=== PATIENT | male | born 1980 | race Caucasian/White ===

== ENCOUNTER 2018-10-22 11:33 | Day surgery (SDC) | payer BC ==
[~2018-10-22 11:33] MED LIST: Buffered Lidocaine 1% SYRIN* 1 ML/SYRINGE INTRADERM ONE; Famotidine IV* 10 MG/ML 2 ML (20 mg) IV ONE; Lactated Ringers 1000 ML Bag* 1,000 ML IV SCH
[2018-10-22] MEDS ORDERED: Famotidine IV* 10 MG/ML 2 ML (20 mg) ONE (11:53)
[2018-10-22] MEDS ORDERED: Clindamycin 900 MG/D5W BAG(*) 900 MG/50 ML BAG IVPB ONE (12:00)
[2018-10-22] MEDS ORDERED: Bupivacaine 0.25% SDV PF* 10 ML VIAL INJ ONE ×2 (13:21→13:37)
[2018-10-22] MEDS ORDERED: Midazolam* 1 MG/ML 5 ML VIAL (5 MG) ONE (13:52)
[2018-10-22] MEDS ORDERED: fentaNYL* 50 MCG/ML 2 ML VIAL (100 MCG VIAL) ONE ×2 (14:00→15:47)
[2018-10-22] MEDS ORDERED: Ondansetron INJ* 2 MG/ML VIAL ONE (14:15)
[2018-10-22] MEDS ORDERED: Lidocaine 2% PF * 5 ML VIAL ONE (14:15)
[2018-10-22] MEDS ORDERED: DiMENhydriNATE IV* 50 MG/ML VIAL ONE (14:15)
[2018-10-22] MEDS ORDERED: Propofol* 10 MG/ML 20 ML BTL ONE (14:15)
[2018-10-22] MEDS ORDERED: Ketorolac INJ* 30 MG/ML 1 ML VIAL ONE (14:15)
[2018-10-22] MEDS ORDERED: Dexamethasone IV* 4 MG/ML 1 ML (4 MG) ONE (14:15)
[2018-10-22] MEDS ORDERED: DiMENhydriNATE IV* 50 MG/ML VIAL IV PUSH PRN (14:21)
[2018-10-22] MEDS ORDERED: Naloxone* 0.4 MG/ML 1 ML VIAL IV PRN (14:21)
[2018-10-22] MEDS ORDERED: oxyCODONE TAB* 5 MG TAB PO PRN (14:21)
[2018-10-22] MEDS ORDERED: Acetaminophen TAB* 325 MG PO PRN (14:21)
[2018-10-22] MEDS ORDERED: oxyCODONE TAB* 5 MG TAB ONE (16:35)
[2018-10-22 17:40] VITALS: BP 140/80
--- NOTE | 2018-10-22 22:57 | OP ---
DATE OF OPERATION: 10/22/18 - [facility] DATE OF : 80 SURGEON: Chance Vogt MD ENVIRONMENTAL REMEDIATION ENGINEER: NORAH Chavez. An assignment desk assistant was needed for the procedure to aid in positioning of the arm and retraction. ANESTHESIOLOGIST: Dr. Osborne followed by Dr. Lux. ANESTHESIA: General. PRE-OP DIAGNOSIS: Left scaphoid waist nonunion. POST-OP DIAGNOSIS: Left scaphoid waist nonunion. OPERATIVE PROCEDURE: Repair of left scaphoid nonunion with distal radius bone graft and Acutrak screw fixation. INDICATIONS: Mohamud had the fracture about a while ago. The x-rays showed lucencies and cystic formation at the fracture site, was initially not visible on the injury films taken in the ER. I got a CT scan, maybe showed a little bit of bridging on the anterior cortex, but a lot of cystic fibrous tissue formation across the fracture site and rarely only saw cortical bridging in one cortex. I told him it looked like it was going on to nonunion and I would prefer to intervene before he developed a hump-back deformity. He agreed and wanted to proceed. He acknowledges that there is risk associated with the procedure. ESTIMATED BLOOD LOSS: 2 mL. COMPLICATIONS: None. FINDINGS: See above and below. DESCRIPTION OF PROCEDURE: Mohamud was seen in the preoperative holding area. The correct site, side, and procedure were identified. We came back to the operating room. The arm was prepped and draped in the usual fashion and a time- out was performed. The arm was exsanguinated with the Esmarch and the tourniquet inflated to 250 mmHg. I made an incision over the Manny tubercle that was brought back obliquely in line with the scaphoid. Full-thickness flaps were raised off of the extensor retinaculum. The retinaculum was opened over the third dorsal compartment. The EPL tendon was transposed. I released some of the soft tissue over the Manny tubercle in anticipation of needing to harvest some bone graft later. I performed a capsulotomy over the scaphoid dorsally and brought it back 0.5 cm or a cm or so along the dorsal rim of the distal radius and elevated the capsular flap to expose the dorsum of the scaphoid. The prior fracture line was seen. I placed a freer elevator and a dropped right into the nonunion site. I brought in my mini C-arm to confirm the area of the nonunion. I then curetted out the entirety of the nonunion. There was quite a bit of fibrous tissue and a lot of nonunion tissue in the area. I curetted this out with a triple-zero curette until it was completely excised. I then brought in my mini C-arm fluoroscopy just to confirm that I had reached the margins of the lucent area. Everything looked very good. I then harvested the distal radius bone graft by opening up a cortical over the dorsum just on the proximal aspect of the Manny tubercle. The curette was used to harvest quite a bit of cancellous bone graft. I then took the bone graft and I packed it densely into the nonunion site until I could pack it no tighter. Utilized the small garibay to pack it into place. Once I had the bone graft packed as tight as I could, I placed the guidewire for a standard Acutrak screw in a typical fashion into the center-center position. I passed the wire antegrade and measured and selected a 24 mm screw. I then advanced the wire up into the trapezium. I drilled and then placed a 24 mm Acutrak screw in a standard fashion. It was in excellent location. The nonunion site was no longer really visible on the x-ray after the bone graft had been packed. At this point, everything was looking very good. We irrigated out the wound, the capsule was closed with 4-0 PDS suture. The EPL tendon was left transposed. The retinaculum was closed with 4-0 PDS suture. The skin was closed with 4-0 Monocryl and Steri-Strips, 0.25% plain Marcaine was infiltrated. Wound was dressed in a thumb spica splint with the IP joint free was applied. Tourniquet was deflated and he was taken to the recovery room in stable condition. [id number]/[facility] #: [id number] NANCY
== END 2018-10-22 18:09 | disposition home or self-care (01) ==
LOC: OR 11:33
PROVIDERS: ATTEND Orthopaedic Surgery Hand Surgery
DX: S62.002K Unspecified fracture of navicular [scaphoid] bone of left wrist, subsequent encounter for fracture with nonunion (principal); V29.88XD Motorcycle rider (driver) (passenger) injured in other specified transport accidents, subsequent encounter; Y92.410 Unspecified street and highway as the place of occurrence of the external cause; Z87.891 Personal history of nicotine dependence
CPT/HCPCS: 76000; A9270-GY; C1713; C1776; J1100; J1240; J1885; J2250; J2405; J2704; J3010; J3490

== ENCOUNTER 2019-04-28 16:54 | Emergency (ER) | payer BC ==
[2019-04-28 17:45] VITALS: BP 126/73
[2019-04-28 17:56] LABS: Influenza A Molecular POSITIVE (Negative)
--- NOTE | 2019-04-28 18:25 | UC ---
FLU HPI - HPI Summary HPI Summary: 38-year-old male presents with 2 day history of general malaise, fatigue, headache, nasal congestion, sore throat, and an occasionally productive cough. Today developed a fever of 102 F. denies ear pain, dysphagia, chest pain, shortness of breath, abdominal pain, nausea, vomiting, or diarrhea. - History of Current Complaint Chief Complaint: UCRespiratory Stated Complaint: COUGH/CONGESTION Time Seen by Provider: 04/28/19 17:54 Hx Obtained From: Patient Pain Intensity: 2 - Allergy/Home Medications Allergies/Adverse Reactions: Allergies Allergy/AdvReac Type Severity Reaction Status Date / Time ciprofloxacin [From Cipro] Allergy GI Upset Verified 04/28/19 17:40 Penicillins Allergy Rash Verified 04/28/19 17:40 bee stings Allergy Mild Swelling Uncoded 04/28/19 17:40 Home Medications: Home Medications Albuterol HFA INHALER* [Ventolin HFA Inhaler*] 1 puff INH Q6H PRN 10/17/18 [ History Confirmed 04/28/19] Diclofenac Sodium [Diclofenac Sodium ER] 100 mg PO DAILY PRN 10/17/18 [History Confirmed 04/28/19] Montelukast Sodium TAB* [Singulair TAB*] 10 mg PO BEDTIME 10/17/18 [History Confirmed 04/28/19] Lisinopril TAB* [Prinivil TAB*] 10 mg PO QPM 04/28/19 [History Confirmed ] PMH/Surg Hx/FS Hx/Imm Hx Cardiovascular History: Hypertension Respiratory History: Asthma GI/ History: Gastroesophageal Reflux - Surgical History Surgical History: None - Family History Family History: Denies significant [facility] - Social History Occupation: Employed Full-time Lives: With Family Alcohol Use: Rare Substance Use Type: None Smoking Status (MU): Former Smoker Have You Smoked in the Last Year: No When Did the Patient Quit Smoking/Using Tobacco: 2011 Review of Systems All Other Systems Reviewed And Are Negative: Yes Constitutional: Positive: Fever, Fatigue Skin: Negative: Rash Eyes: Negative: Drainage, Eye Redness ENT: Positive: Sore Throat, Nasal Discharge, Sinus Congestion. Negative: Ear Ache, Sinus Pain/Tenderness Respiratory: Positive: Cough. Negative: Shortness Of Breath Cardiovascular: Negative: Chest Pain Gastrointestinal: Negative: Abdominal Pain, Vomiting, Diarrhea, Nausea Genitourinary: Positive: Negative Musculoskeletal: Positive: Negative Neurological/Mental Status: Positive: Headache Physical Exam - Summary Physical Exam Summary: GENERAL APPEARANCE: Well developed, well nourished, alert and cooperative, and appears to be in no acute distress. EYES: Conjunctiva clear. No drainage. EARS: External auditory canals and tympanic membranes clear, hearing grossly intact. NOSE: Mild to moderate nasal congestion. No nasal discharge. THROAT: Pharyngeal erythema. No tonsilar inflammation, swelling, exudate, or lesions. Uvula midline. NECK: Neck supple, non-tender without lymphadenopathy. CARDIAC: Normal S1 and S2. No S3, S4 or murmurs. Rhythm is regular. There is no peripheral edema, cyanosis or pallor. Extremities are warm and well perfused. Capillary refill is less than 2 seconds. Peripheral pulses intact. LUNGS: Clear to auscultation without rales, rhonchi, wheezing or diminished breath sounds. Dry nonproductive cough. ABDOMEN: Positive bowel sounds. Soft, nondistended, nontender. No guarding or rebound. No masses or hepatosplenomegally. MUSKULOSKELETAL: ROM intact to all extremities. No joint erythema or tenderness. Normal muscular development. Normal gait. SKIN: Skin normal color, texture and turgor with no lesions or eruptions. Triage Information Reviewed: Yes Vital Signs: Initial Vital Signs Temp 99.6 F 04/28/19 17:40 Pulse 120 04/28/19 17:40 Resp 16 04/28/19 17:40 BP 126/73 04/28/19 17:40 Pulse Ox 98 04/28/19 17:40 Vital Signs Reviewed: Yes Flu Course/Dx - Course Course Of Treatment: 38-year-old male presents with 2 day history of general malaise, fatigue, headache, nasal congestion, sore throat, and an occasionally productive cough. Today developed a fever of 102 F. denies ear pain, dysphagia, chest pain, shortness of breath, abdominal pain, nausea, vomiting, or diarrhea. Afebrile. Tachycardic otherwise vital signs stable. Patient had mild to moderate nasal congestion, normal TMs, pharyngeal erythema without tonsillar swelling or exudate, no cervical lymphadenopathy, clear bilateral breath sounds, dry nonproductive cough, and otherwise unremarkable exam. Rapid flu test was positive for influenza A. discussed risks and benefits of treating with Tamiflu and patient is electing not to start at this time. Recommending symptomatic treatment. He is to follow-up with his primary care provider in 5-7 days if symptoms are not improving. Anticipatory guidance and warning symptoms reviewed with the patient. Verbalizes understanding and agrees with plan of care. - Differential Dx/Diagnosis Differential Diagnosis/HQI/PQRI: Bronchitis, Influenza, Pneumonia, Upper Respiratory Infection Provider Diagnosis: Influenza A Discharge ED - Sign-Out/Discharge Documenting (check all that apply): Patient Departure All imaging exams completed and their final reports reviewed: No Studies - Discharge Plan Condition: Stable Disposition: HOME Patient Education Materials: Influenza (ED) Forms: *Work Release Referrals: Renetta Marcus PA [Primary Care Provider] - 5 Days Additional Instructions: Your flu test in the clinic today was positive for influenza A. Get plenty of rest. Drink plenty of fluids to avoid dehydration especially if you are running any fever. Take over the counter acetaminophen (Tylenol) or ibuprofen (Advil, Motrin) according to directions as needed for pain or fever. Use salt water gargles several times a day if you have a sore throat. You may also use Chloraseptic spray or Cepacol lonzenges according to directions which contain a numbing medication and can provide some temporary relief from your sore throat. Follow up with your primary care provider in 5-7 days if symptoms persist. Seek immediate medical attention in the emergency room if you have fever greater than 100.5 F despite taking acetaminophen or ibuprofen, have chest pain , difficulty breathing, are unable to swallow, or have any worsening of symptoms. - Billing Disposition and Condition Condition: STABLE Disposition: Home
== END 2019-04-28 18:44 | disposition home or self-care (01) ==
LOC: UCCORT 16:54
DX: J10.1 Influenza due to other identified influenza virus with other respiratory manifestations (principal); I10 Essential (primary) hypertension; J45.909 Unspecified asthma, uncomplicated; Z87.891 Personal history of nicotine dependence; Z79.899 Other long term (current) drug therapy; Z88.0 Allergy status to penicillin; Z88.1 Allergy status to other antibiotic agents; Z91.030 Bee allergy status
CPT/HCPCS: 99211; G0463